=== PATIENT | female | born 1935 | race Caucasian/White ===

== ENCOUNTER 2017-08-14 03:03 | Emergency (ER) | payer MEDICARE ==
[~2017-08-14 03:03] MED LIST: ASPI-1197 PO; CHOL5POW MC; FURO40TA5 PO; GEMF600T3 PO; HYDR12.530 PO; LEVO500T2 PO; PROP20TA7 PO; WARF2.5T85 PO
[2017-08-14 03:39] LABS: BASOPHILS % (AUTO) 0.3 % (0.0-5.0); HEMATOCRIT 37.3 % (36-48); LYMPHOCYTES % (AUTO) 12.5 % (21.0-51.0); MEAN CORPUSCULAR HGB CONC 34.4 g/dL (32.0-36.0); MEAN CORPUSCULAR VOLUME 90.2 fL (79-99); NEUTROPHILS % (AUTO) 80.2 % (40.0-77.0); PLATELET COUNT (AUTO) 298 K/uL (130-400); RED BLOOD CELL COUNT(AUTO) 4.14 MIL/uL (4.00-5.50); WHITE BLOOD COUNT (AUTO) 10.7 K/uL (4.8-10.8)
[2017-08-14 03:48] LABS: CREATININE 1.4 mg/dL (0.5-1.5); POTASSIUM 3.4 mmol/L (3.5-5.1)
[2017-08-14 03:49] LABS: INR 2.61 (0.85-1.15); PARTIAL THROMBOPLASTIN TIME 33.1 SEC (26.3-35.5); PROTHROMBIN TIME 26.9 SEC (9.6-11.6)
[2017-08-14 04:03] LABS: ALBUMIN 4.3 g/dL (3.5-5.0); BILIRUBIN,TOTAL 0.5 mg/dL (0.2-1.0); CREATINE KINASE MB 1.5 ng/mL (0.5-3.6); TOTAL PROTEIN, SERUM 9.2 g/dL (6.0-8.3)
[2017-08-14] MEDS ORDERED: IPRATROPIUM/ALBUTEROL SULFATE 3 ML SOLUTION IH ONE (04:53)
[2017-08-14 05:02] LABS: APPEARANCE,URINE Clear (CLEAR); BILIRUBIN,URINE Negative (NEGATIVE); COLOR,URINE Yellow (YELLOW); GLUCOSE, URINE (UA) Negative (NEGATIVE); KETONES,URINE Negative (NEGATIVE); LEUKOCYTE ESTERASE ,URINE Trace (NEGATIVE); NITRATE,URINE Negative (NEGATIVE); OCCULT BLOOD,URINE Negative (NEGATIVE); PROTEIN,URINE Negative (NEGATIVE); UROBILINOGEN,URINE 0.2 mg/dL (0.2-1.0)
[2017-08-14 05:32] LABS: BACTERIA,URINE Rare /HPF (None Seen); RBC,URINE None Seen /HPF (0-1); SQUAMOUS EPITHELIAL CELL,UR 0-2 /HPF (0-2); WBC,URINE 0-1 /HPF (0-1)
[2017-08-14] MEDS ORDERED: METHYLPREDNISOLONE SOD SUCC 125MG/2ML VIAL ONE (06:36)
[2017-08-14] MEDS ORDERED: ALBUTEROL SULFATE 0.083% 2.5 MG/3 ML INH IH ONE (06:54)
== END 2017-08-14 07:50 | disposition home or self-care (01) ==
LOC: EDH 03:03
DX: J20.9 Acute bronchitis, unspecified (principal); I48.91 Unspecified atrial fibrillation; I48.92 Unspecified atrial flutter; I50.9 Heart failure, unspecified; Z88.0 Allergy status to penicillin; Z88.8 Allergy status to other drugs, medicaments and biological substances; Z79.899 Other long term (current) drug therapy; Z98.890 Other specified postprocedural states
CPT/HCPCS: 36415; 71045; 80053; 81001; 82550; 82553; 83880; 84484; 85025; 85610; 85730; 87804 ×2; 93005; 94640 ×2; 96374; 99285; J2930

== ENCOUNTER 2018-06-10 17:39 | Inpatient (IN) | payer MEDICARE ==
[~2018-06-10] VITALS: Ht 157.5 cm; Wt 66.0 kg
[~2018-06-10 17:39] MED LIST changes: -GEMF600T3 PO; +GEMF600T5 PO
[2018-06-10] MEDS ORDERED: ACETAMINOPHEN 325 MG TAB ONE (18:24)
[2018-06-10 18:37] LABS: EOSINOPHILS % (AUTO) 0.3 % (0.0-8.0); HEMATOCRIT 37.4 % (36-48); LYMPHOCYTES % (AUTO) 30.2 % (21.0-51.0); MEAN CORPUSCULAR HEMOGLOBIN 31.4 pg (27.0-33.0); MEAN CORPUSCULAR HGB CONC 34.6 g/dL (32.0-36.0); MEAN CORPUSCULAR VOLUME 90.8 fL (79-99); MONOCYTES % (AUTO) 16.6 % (3.0-13.0); NEUTROPHILS % (AUTO) 51.9 % (40.0-77.0); NUCLEATED RED BLOOD CELLS 0.1 % (0.0-0.19); PLATELET COUNT (AUTO) 265 K/uL (130-400); RED BLOOD CELL COUNT(AUTO) 4.12 MIL/uL (4.00-5.50); RED CELL DISTRIBUTION WIDTH 14.1 % (11.0-15.5); WHITE BLOOD COUNT (AUTO) 5.2 K/uL (4.8-10.8)
[2018-06-10 18:56] LABS: CREATININE 1.4 mg/dL (0.5-1.5); POTASSIUM 3.7 mmol/L (3.5-5.1)
[2018-06-10 19:06] LABS: ALBUMIN 3.6 g/dL (3.5-5.0); BILIRUBIN,TOTAL 0.8 mg/dL (0.2-1.0); TOTAL PROTEIN, SERUM 7.6 g/dL (6.0-8.3)
[2018-06-10] MEDS ORDERED: METHYLPREDNISOLONE SOD SUCC 125MG/2ML VIAL ONE (19:10)
[2018-06-10] MEDS ORDERED: LEVOFLOXACIN 750 MG/D5W 150 ML 150 ML ONE (19:10)
[2018-06-10] MEDS ORDERED: OSELTAMIVIR PHOSPHATE 75 MG CAP ONE (19:11)
[2018-06-10] MEDS ORDERED: ONDANSETRON HCL 4 MG/2 ML VIAL IV PRN (19:30)
[2018-06-10] MEDS: LEVOFLOXACIN 500 MG/D5W 100 ML 100 ML IV SCH (19:30)
[2018-06-10] MEDS ORDERED: SODIUM CHLORIDE 3% FOR INHALATION 4 ML/AMP VIAL.NEB IH ONE ×2 (19:46→21:46)
[2018-06-10] MEDS ORDERED: SODIUM CHLORIDE 0.9% 1000ML 1,000 ML IV ONE (19:53)
[2018-06-10] MEDS: OSELTAMIVIR PHOSPHATE 75 MG CAP PO SCH (21:00)
[2018-06-10 21:21] LABS: INR 1.57 (0.85-1.15); PARTIAL THROMBOPLASTIN TIME 33.7 SEC (26.3-35.5); PROTHROMBIN TIME 16.3 SEC (9.6-11.6)
[2018-06-10 21:30] VITALS: BP 122/68
[2018-06-10] MEDS: IPRATROPIUM 0.5 MG/2.5 ML INH IH SCH (21:47)
[2018-06-10] MEDS ORDERED: WARFARIN SODIUM 2.5 MG TAB ONE (22:35)
[2018-06-11] VITALS: BP 110/62
[2018-06-11] MEDS: IPRATROPIUM 0.5 MG/2.5 ML INH IH SCH ×6 (02:32→22:19)
[2018-06-11 04:00] VITALS: BP 127/66
[2018-06-11 05:17] LABS: BASOPHILS % (AUTO) 0.5 % (0.0-5.0); HEMATOCRIT 35.6 % (36-48); LYMPHOCYTES % (AUTO) 28.1 % (21.0-51.0); MEAN CORPUSCULAR HEMOGLOBIN 30.3 pg (27.0-33.0); MEAN CORPUSCULAR VOLUME 89.3 fL (79-99); MONOCYTES % (AUTO) 2.5 % (3.0-13.0); NEUTROPHILS % (AUTO) 68.9 % (40.0-77.0); NUCLEATED RED BLOOD CELLS 0.1 % (0.0-0.19); PLATELET COUNT (AUTO) 216 K/uL (130-400); RED BLOOD CELL COUNT(AUTO) 3.98 MIL/uL (4.00-5.50); WHITE BLOOD COUNT (AUTO) 3.4 K/uL (4.8-10.8)
[2018-06-11 05:26] LABS: INR 1.62 (0.85-1.15); PARTIAL THROMBOPLASTIN TIME 33.4 SEC (26.3-35.5); PROTHROMBIN TIME 16.9 SEC (9.6-11.6)
[2018-06-11 05:30] LABS: B-TYPE NATRIURETIC PEPTIDE 259 pg/mL (0-100)
[2018-06-11 05:36] LABS: ALBUMIN 3.2 g/dL (3.5-5.0); BILIRUBIN,TOTAL 0.8 mg/dL (0.2-1.0); CREATININE 1.3 mg/dL (0.5-1.5); POTASSIUM 3.4 mmol/L (3.5-5.1); TOTAL PROTEIN, SERUM 6.9 g/dL (6.0-8.3)
[2018-06-11] MEDS: SODIUM CHLORIDE 0.9% 1000ML 1,000 ML IV SCH ×3 (06:19→19:58)
[2018-06-11] MEDS ORDERED: HYDR12.530 PO (06:45)
[2018-06-11] MEDS ORDERED: WARF1TAB83 PO (06:45)
[2018-06-11] MEDS ORDERED: CYAN250014 PO (06:45)
[2018-06-11] MEDS ORDERED: FAMO20TA8 PO (06:45)
[2018-06-11] MEDS ORDERED: WARF2.5T85 PO (06:45)
[2018-06-11] MEDS ORDERED: PROP60TA20 PO (06:45)
[2018-06-11] MEDS ORDERED: NITR0.4T50 SL (06:45)
[2018-06-11] MEDS ORDERED: ISOS30TA6 PO (06:45)
[2018-06-11 07:00] VITALS: BP 129/76
--- NOTE | 2018-06-11 07:30 | NUR ---
PATIENT UPDATE Admitted for influenza B, placed on contact isolation. Started on Levaquin and Tamiflu, on nebs tx, coughing to moderate amount of whitish phlegm, sent for gm stain and culture. Afebrile the whole shift, vital signs stable, no complaints of pain. Coumadin 1.25 mg given last night, pt took own supply from home. Gentle hydration with NS at 70 cc/hr. Gets up to the restroom with minimal assistance, on tele monitoring- chronic afib at a controlled rate.
[2018-06-11] MEDS ORDERED: ENOXAPARIN SODIUM 30 MG/0.3 ML SQ SCH (09:00)
[2018-06-11] MEDS: OSELTAMIVIR PHOSPHATE 75 MG CAP PO SCH ×2 (09:23→19:55)
[2018-06-11] MEDS: PANTOPRAZOLE SODIUM 40 MG TABLET.DR PO SCH (09:24)
[2018-06-11] MEDS ORDERED: FUROSEMIDE 40 MG TABLET PO PRN (10:30)
[2018-06-11] MEDS ORDERED: NITROGLYCERIN 0.4 MG SL TAB SL SCH (10:30)
[2018-06-11 11:00] VITALS: BP 136/82
[2018-06-11] MEDS: PROPRANOLOL HCL 20 MG TAB PO SCH (12:02)
[2018-06-11] MEDS: CYANOCOBALAMIN (VITAMIN B-12) 1,000 MCG TABLET PO SCH (12:03)
[2018-06-11] MEDS: HYDROCHLOROTHIAZIDE 25 MG TABLET PO SCH (12:03)
[2018-06-11] MEDS: FAMOTIDINE 20MG TAB 20 MG TAB PO SCH (12:03)
--- NOTE | 2018-06-11 15:36 | NUR ---
INITIAL: Met w pt this afternoon to discuss dcp. Pt states that [place] is [place] Per pt she is living in an w 4steps to enter. She mentions that she is independent w ambulation and ADLs. Pt has a nebulizer and rollator avail if needed. per pt she is able to drive where needed and states that a friend will be avail to assist w transportation home. Pt feels safe and comfortable to return home at md. Will continue to follow and wait for Md recommendations. Addendum: 06/11/18 at 1541 by SHILOH GARCIA CM Amended: Links added.
[2018-06-11 16:00] VITALS: BP 143/77
[2018-06-11] MEDS: CHOLESTYRAMINE PACKET 4 GM PACKET PO SCH (19:55)
[2018-06-11] MEDS: LEVOFLOXACIN 500 MG/D5W 100 ML 100 ML IV SCH (19:55)
[2018-06-11 20:00] VITALS: BP 140/74
[2018-06-11] MEDS ORDERED: IPRATROPIUM/ALBUTEROL SULFATE 3 ML SOLUTION IH ONE (20:46)
[2018-06-11] MEDS: IPRATROPIUM/ALBUTEROL SULFATE 3 ML SOLUTION IH SCH (22:00)
[2018-06-12] VITALS (9 sets, daily range): BP systolic 95–150; BP diastolic 57–82
[2018-06-12] MEDS: IPRATROPIUM/ALBUTEROL SULFATE 3 ML SOLUTION IH SCH ×4 (02:00→21:37)
[2018-06-12] MEDS: ACETAMINOPHEN 325 MG TAB PO PRN ×2 (02:08→08:27)
[2018-06-12] MEDS: IPRATROPIUM 0.5 MG/2.5 ML INH IH SCH ×3 (02:19→10:20)
--- NOTE | 2018-06-12 02:21 | NUR ---
COUGH/FEVER Pt c/o cough and chills,states she feels like she's choking.Vs 100.2 97 18 159/80.02 sat 98% on 02 2 lpm via nh.Notified V Adrian Vinson.New orders received.
[2018-06-12] MEDS: FUROSEMIDE 10 MG/ML 4ML VIAL IV SCH ×4 (02:35→20:07)
--- NOTE | 2018-06-12 02:41 | NUR ---
SOB Pt states she feels sob,02 sat 88% when she got up to the bathroom.Anxious,placed on 02 at 2 lpm via Nc,Wants to sit up on chair,Ivf stopped.Lasix given iv.Notified Sarath Campbell Np.
[2018-06-12] MEDS ORDERED: MORPHINE SULFATE 2 MG/ML 1ML SYG ONE (02:45)
--- NOTE | 2018-06-12 02:50 | NUR ---
Morphine mORPHINE given Iv for sob as per order.
--- NOTE | 2018-06-12 02:59 | NUR ---
MANASA nuñez Np at the bedside.
[2018-06-12] MEDS ORDERED: MORPHINE SULFATE 2 MG/ML 1ML SYG IV ONE (03:00)
[2018-06-12] MEDS ORDERED: VANCOMYCIN PROTOCOL PER PHARMACY IV SCH (03:00)
--- NOTE | 2018-06-12 03:01 | NUR ---
ekg,cxr ekg and chest x ray being done.
--- NOTE | 2018-06-12 03:15 | NUR ---
CONSULT VIDHI SANDOVAL elementary assistant teacher SAID to wait for labs before calling pulmo consult.She will let me know when.
[2018-06-12 03:18] LABS: ABG BASE EXCESS -0.8 mmol/L (-2.0-3.0); ABG HCO3 22.5 mmol/L (21.0-28.0); ABG OXYGEN SATURATION 96.4 % (95.0-99.0); ABG PCO2 33 mmHg (32-45)
[2018-06-12 03:24] LABS: BASOPHILS % (AUTO) 0.7 % (0.0-5.0); EOSINOPHILS % (AUTO) 0.1 % (0.0-8.0); HEMATOCRIT 39.4 % (36-48); LYMPHOCYTES % (AUTO) 15.4 % (21.0-51.0); MEAN CORPUSCULAR HEMOGLOBIN 30.4 pg (27.0-33.0); MEAN CORPUSCULAR HGB CONC 33.7 g/dL (32.0-36.0); MEAN CORPUSCULAR VOLUME 90.4 fL (79-99); MONOCYTES % (AUTO) 4.6 % (3.0-13.0); NEUTROPHILS % (AUTO) 79.2 % (40.0-77.0); PLATELET COUNT (AUTO) 289 K/uL (130-400); RED BLOOD CELL COUNT(AUTO) 4.36 MIL/uL (4.00-5.50); RED CELL DISTRIBUTION WIDTH 14.3 % (11.0-15.5); WHITE BLOOD COUNT (AUTO) 12.1 K/uL (4.8-10.8)
[2018-06-12 03:30] LABS: CREATININE 1.4 mg/dL (0.5-1.5); POTASSIUM 4.9 mmol/L (3.5-5.1)
--- NOTE | 2018-06-12 03:31 | NUR ---
LACTIC ACID Lactic acid called in to Sarath Campbell feedlot manager
[2018-06-12 03:34] LABS: ALBUMIN 3.6 g/dL (3.5-5.0); BILIRUBIN,TOTAL 0.8 mg/dL (0.2-1.0); MAGNESIUM 1.9 mg/dL (1.80-2.40); TOTAL PROTEIN, SERUM 7.7 g/dL (6.0-8.3)
--- NOTE | 2018-06-12 03:34 | NUR ---
FF-UP Pt more calm,denies pain or sob.
[2018-06-12 03:44] LABS: INR 1.4 (0.85-1.15); PARTIAL THROMBOPLASTIN TIME 30.9 SEC (26.3-35.5); PROTHROMBIN TIME 14.6 SEC (9.6-11.6)
[2018-06-12] MEDS ORDERED: FUROSEMIDE 10 MG/ML 4ML VIAL IV SCH (03:45)
[2018-06-12 04:23] LABS: CREATINE KINASE, TOTAL 130 U/L (21-232); MYOGLOBIN 148 ng/mL (10-92); TROPONIN I < 0.04 ng/mL (0.00-0.06)
[2018-06-12] MEDS ORDERED: IPRATROPIUM/ALBUTEROL SULFATE 3 ML SOLUTION IH PRN (06:00)
[2018-06-12] MEDS ORDERED: VANCOMYCIN 1.75 GM in SODIUM CHLORIDE 0.9% 250 ML IV SCH (06:30)
--- NOTE | 2018-06-12 07:30 | NUR ---
VANCO VANCOMYCIN not yet here,report given to Apolinar Castro.
[2018-06-12] MEDS: HYDROCHLOROTHIAZIDE 25 MG TABLET PO SCH (08:24)
[2018-06-12] MEDS: OSELTAMIVIR PHOSPHATE 75 MG CAP PO SCH ×2 (08:25→20:06)
[2018-06-12] MEDS: ASPIRIN 81MG TAB.CHEW PO SCH (08:25)
[2018-06-12] MEDS: PANTOPRAZOLE SODIUM 40 MG TABLET.DR PO SCH (08:25)
[2018-06-12] MEDS: PROPRANOLOL HCL 20 MG TAB PO SCH (08:25)
[2018-06-12] MEDS: FAMOTIDINE 20MG TAB 20 MG TAB PO SCH (08:25)
[2018-06-12] MEDS: CYANOCOBALAMIN (VITAMIN B-12) 1,000 MCG TABLET PO SCH (08:25)
[2018-06-12] MEDS: ISOSORBIDE MONO 30MG TAB SR PO SCH (08:25)
[2018-06-12] MEDS: CHOLESTYRAMINE PACKET 4 GM PACKET PO SCH (09:00)
[2018-06-12] MEDS ORDERED: IPRATROPIUM 0.5 MG/2.5 ML INH IH PRN (10:30)
[2018-06-12] MEDS ORDERED: WARFARIN SODIUM 2.5 MG TAB PO SCH ×2 (10:30→16:00)
--- NOTE | 2018-06-12 14:04 | NUR ---
COUMADIN DIET EDUCATION: Printed materials provided on coumadin and vitamin K diet education. Pt reports being on coumadin for several years now, however unable to report how long. Pt with no nutrition questions. LBM 06/11. BMI 27.6, appropriate for age. Recommendations: Continue current diet therapy. Consult RD if additional nutrition concerns arise. Addendum: 06/12/18 at [address] RD Amended: Links added.
[2018-06-12] MEDS ORDERED: CHOLESTYRAMINE PACKET 4 GM PACKET PO SCH (16:42)
[2018-06-12] MEDS: LEVOFLOXACIN 500 MG/D5W 100 ML 100 ML IV SCH (20:07)
[2018-06-13] MEDS: IPRATROPIUM/ALBUTEROL SULFATE 3 ML SOLUTION IH SCH ×6 (01:28→21:37)
--- NOTE | 2018-06-13 03:45 | NUR ---
STATUS Pt resting well.Voiced no complaints of sob.Still has coughing spells,able to expectorate white thin phlegm.Valeria nebulizer treatments and antibiotic well.
[2018-06-13 03:51] VITALS: BP 127/55
[2018-06-13 05:47] LABS: BASOPHILS % (AUTO) 0.5 % (0.0-5.0); EOSINOPHILS % (AUTO) 0.1 % (0.0-8.0); HEMATOCRIT 37.2 % (36-48); LYMPHOCYTES % (AUTO) 27.8 % (21.0-51.0); MEAN CORPUSCULAR HGB CONC 33.5 g/dL (32.0-36.0); MEAN CORPUSCULAR VOLUME 89.4 fL (79-99); MONOCYTES % (AUTO) 8.5 % (3.0-13.0); NEUTROPHILS % (AUTO) 63.1 % (40.0-77.0); PLATELET COUNT (AUTO) 239 K/uL (130-400); RED BLOOD CELL COUNT(AUTO) 4.16 MIL/uL (4.00-5.50); RED CELL DISTRIBUTION WIDTH 14.4 % (11.0-15.5); WHITE BLOOD COUNT (AUTO) 6.2 K/uL (4.8-10.8)
[2018-06-13 05:58] LABS: INR 1.48 (0.85-1.15); PARTIAL THROMBOPLASTIN TIME 40.1 SEC (26.3-35.5); PROTHROMBIN TIME 15.4 SEC (9.6-11.6)
[2018-06-13 06:02] LABS: CREATININE 1.4 mg/dL (0.5-1.5); POTASSIUM 3.3 mmol/L (3.5-5.1)
--- NOTE | 2018-06-13 07:00 | NUR ---
MD Dr KWON came to see pt.He ordered Coumadin change.He said he will place order for K+ protocol and tessaln pearls.
[2018-06-13 08:24] VITALS: BP 124/61
[2018-06-13] MEDS: VANCOMYCIN 500MG+NS 100 ML IV SCH (08:53)
[2018-06-13] MEDS: OSELTAMIVIR PHOSPHATE 75 MG CAP PO SCH ×2 (08:54→21:53)
[2018-06-13] MEDS: FUROSEMIDE 10 MG/ML 4ML VIAL IV SCH ×2 (08:54→16:13)
[2018-06-13] MEDS: CYANOCOBALAMIN (VITAMIN B-12) 1,000 MCG TABLET PO SCH (08:54)
[2018-06-13] MEDS: PROPRANOLOL HCL 20 MG TAB PO SCH (08:54)
[2018-06-13] MEDS: ISOSORBIDE MONO 30MG TAB SR PO SCH (08:54)
[2018-06-13] MEDS: HYDROCHLOROTHIAZIDE 25 MG TABLET PO SCH (08:55)
[2018-06-13] MEDS: PANTOPRAZOLE SODIUM 40 MG TABLET.DR PO SCH (08:55)
[2018-06-13] MEDS: FAMOTIDINE 20MG TAB 20 MG TAB PO SCH (08:55)
[2018-06-13] MEDS: ASPIRIN 81MG TAB.CHEW PO SCH (08:55)
[2018-06-13 11:46] VITALS: BP 130/74
[2018-06-13] MEDS: METHYLPREDNISOLONE SOD SUCC 40MG/ML 1ML IVP SCH (12:44)
[2018-06-13] MEDS: BENZONATATE 100 MG CAPSULE PO PRN ×2 (12:49→21:52)
[2018-06-13] MEDS: ACETYLCYSTEINE 20% 200MG/ML 4ML VIAL IH SCH ×2 (15:04→21:37)
[2018-06-13 15:47] VITALS: BP_SYST 103; BP_SYST 130; BP_DIAS 58; BP_DIAS 72
[2018-06-13] MEDS: POTASSIUM CHLORIDE 10% ELIXIR 20 MEQ/15 ML UDCUP PO PRN ×2 (16:15→18:36)
[2018-06-13] MEDS: WARFARIN SODIUM 1 MG TAB PO SCH (16:16)
[2018-06-13] MEDS: LEVOFLOXACIN 500 MG/D5W 100 ML 100 ML IV SCH (18:36)
[2018-06-13 20:15] VITALS: BP 119/70
--- NOTE | 2018-06-13 21:52 | NUR ---
COUGH Pt continues with productive cough,medicated with Tessalon pearls.
[2018-06-13] MEDS: MONTELUKAST SODIUM 10 MG TAB PO SCH (21:53)
[2018-06-13 23:27] VITALS: BP 118/53
[2018-06-14] MEDS: IPRATROPIUM/ALBUTEROL SULFATE 3 ML SOLUTION IH SCH ×6 (01:34→21:25)
[2018-06-14 03:44] VITALS: BP 116/60
[2018-06-14] MEDS: GUAIFENESIN-CODEINE 5 ML SYRUP PO PRN ×2 (05:13→21:34)
[2018-06-14 05:48] LABS: INR 1.7 (0.85-1.15); PARTIAL THROMBOPLASTIN TIME 40.1 SEC (26.3-35.5); PROTHROMBIN TIME 17.7 SEC (9.6-11.6)
[2018-06-14 05:51] LABS: CREATININE 1.5 mg/dL (0.5-1.5); PHOSPHORUS 3.8 mg/dL (2.5-4.9); POTASSIUM 4.4 mmol/L (3.5-5.1)
[2018-06-14] MEDS: ACETYLCYSTEINE 20% 200MG/ML 4ML VIAL IH SCH ×3 (06:15→21:25)
[2018-06-14 07:30] VITALS: BP 127/77
[2018-06-14] MEDS: PROPRANOLOL HCL 20 MG TAB PO SCH (09:11)
[2018-06-14] MEDS: ASPIRIN 81MG TAB.CHEW PO SCH (09:11)
[2018-06-14] MEDS: CYANOCOBALAMIN (VITAMIN B-12) 1,000 MCG TABLET PO SCH (09:12)
[2018-06-14] MEDS: PANTOPRAZOLE SODIUM 40 MG TABLET.DR PO SCH (09:12)
[2018-06-14] MEDS: FUROSEMIDE 20 MG TABLET PO SCH (09:12)
[2018-06-14] MEDS: ISOSORBIDE MONO 30MG TAB SR PO SCH (09:12)
[2018-06-14] MEDS: OSELTAMIVIR PHOSPHATE 75 MG CAP PO SCH ×2 (09:12→21:34)
[2018-06-14] MEDS: FAMOTIDINE 20MG TAB 20 MG TAB PO SCH (09:12)
[2018-06-14] MEDS: VANCOMYCIN 500MG+NS 100 ML IV SCH (09:14)
[2018-06-14 11:00] VITALS: BP 130/75
[2018-06-14] MEDS: METHYLPREDNISOLONE SOD SUCC 40MG/ML 1ML IVP SCH (12:27)
[2018-06-14 16:00] VITALS: BP 122/78
[2018-06-14] MEDS ORDERED: WARFARIN SODIUM 1 MG TAB PO SCH (16:00)
[2018-06-14] MEDS: WARFARIN SODIUM 1 MG TAB PO SCH (16:33)
[2018-06-14] MEDS: LEVOFLOXACIN 500 MG/D5W 100 ML 100 ML IV SCH (18:40)
[2018-06-14 19:00] VITALS: BP 120/70
[2018-06-14] MEDS: MONTELUKAST SODIUM 10 MG TAB PO SCH (21:34)
[2018-06-14] MEDS: BENZONATATE 100 MG CAPSULE PO PRN (21:34)
--- NOTE | 2018-06-14 21:35 | NUR ---
MEDS PT IN TO DO BREATHING TREATMENT. STILL WITH COUGHING EPISODES. BUT PT CLAIMS SHE IS FEELING MUCH BETTER. BREATHING WITH EASE ON RA. DUE MEDS ADMINISTERED, TOLERATED WELL. KEPT RESTED IN BED WITH HOB ELEVATED. CALL LIGHT WITHIN REACH. WILL CONTINUE TO MONITOR.
[2018-06-15] VITALS: BP 142/85
[2018-06-15] MEDS: IPRATROPIUM/ALBUTEROL SULFATE 3 ML SOLUTION IH SCH ×6 (01:30→21:04)
--- NOTE | 2018-06-15 02:00 | NUR ---
ROUNDS PT RESTING WELL. NO DISTRESS NOTED. SLEPT AT INTERVALS. KEPT COMFORTABLE IN BED. WILL CONTINUE TO MONITOR.
[2018-06-15 04:00] VITALS: BP 130/66
[2018-06-15 04:51] LABS: HEMATOCRIT 37.5 % (36-48); MEAN CORPUSCULAR HEMOGLOBIN 31.1 pg (27.0-33.0); MEAN CORPUSCULAR HGB CONC 34.9 g/dL (32.0-36.0); MEAN CORPUSCULAR VOLUME 89.1 fL (79-99); PLATELET COUNT (AUTO) 272 K/uL (130-400); RED BLOOD CELL COUNT(AUTO) 4.21 MIL/uL (4.00-5.50); RED CELL DISTRIBUTION WIDTH 13.8 % (11.0-15.5)
[2018-06-15] MEDS: BENZONATATE 100 MG CAPSULE PO PRN ×2 (04:55→20:30)
[2018-06-15] MEDS: GUAIFENESIN-CODEINE 5 ML SYRUP PO PRN (04:55)
--- NOTE | 2018-06-15 04:55 | NUR ---
COUGH PT STILL HAVING COUGHING EPISODES. MEDICATED WITH TESSALON PEARLS AND GUAIFENESIN WITH CODEINE SYRUP. KEPT COMFORTABLE IN BED WITH HOB ELEVATED. FOR MORE CARE.
[2018-06-15 04:57] LABS: CREATININE 1.6 mg/dL (0.5-1.5); INR 2.33 (0.85-1.15); PARTIAL THROMBOPLASTIN TIME 36.6 SEC (26.3-35.5); POTASSIUM 3.9 mmol/L (3.5-5.1); PROTHROMBIN TIME 24.1 SEC (9.6-11.6)
[2018-06-15] MEDS: ACETYLCYSTEINE 20% 200MG/ML 4ML VIAL IH SCH ×3 (06:02→21:04)
--- NOTE | 2018-06-15 07:15 | NUR ---
MD REPORT GIVEN TO AM NURSE. DR MCGEE IN TO SEE PT. NEW ORDERS GIVEN, PLEASE REFER TO CPOE.
[2018-06-15 08:00] VITALS: BP 126/70
[2018-06-15] MEDS: PROPRANOLOL HCL 20 MG TAB PO SCH (09:59)
[2018-06-15] MEDS: FAMOTIDINE 20MG TAB 20 MG TAB PO SCH (09:59)
[2018-06-15] MEDS: ISOSORBIDE MONO 30MG TAB SR PO SCH (09:59)
[2018-06-15] MEDS: FUROSEMIDE 20 MG TABLET PO SCH (09:59)
[2018-06-15] MEDS: PANTOPRAZOLE SODIUM 40 MG TABLET.DR PO SCH (09:59)
[2018-06-15] MEDS: CYANOCOBALAMIN (VITAMIN B-12) 1,000 MCG TABLET PO SCH (09:59)
[2018-06-15] MEDS: OSELTAMIVIR PHOSPHATE 75 MG CAP PO SCH (09:59)
[2018-06-15] MEDS: ASPIRIN 81MG TAB.CHEW PO SCH (09:59)
[2018-06-15] MEDS ORDERED: COMPOUND IV REFRIGERATED 1 EACH IVSOLN MISC PRN (11:15)
[2018-06-15 12:00] VITALS: BP 119/69
[2018-06-15] MEDS: METHYLPREDNISOLONE SOD SUCC 40MG/ML 1ML IVP SCH (12:26)
[2018-06-15] MEDS: VANCOMYCIN 0.75 GM in SODIUM CHLORIDE 0.9% 250 ML IV SCH (12:26)
[2018-06-15 16:00] VITALS: BP 122/78
[2018-06-15] MEDS: WARFARIN SODIUM 2.5 MG TAB PO SCH (16:31)
[2018-06-15 20:00] VITALS: BP 124/68
[2018-06-15] MEDS: MONTELUKAST SODIUM 10 MG TAB PO SCH (20:30)
[2018-06-15] MEDS: LEVOFLOXACIN 500 MG/D5W 100 ML 100 ML IV SCH (20:30)
[2018-06-15] MEDS: TEMAZEPAM 7.5 MG CAPSULE PO PRN (20:30)
--- NOTE | 2018-06-15 20:30 | NUR ---
MEDS PT'S DUE MEDS ADMINISTERED, TOLERATED WELL. KEPT RESTED AND COMFORTABLE. CALL LIGHT WITHIN REACH. WILL CONTINUE TO MONITOR.
[2018-06-16] VITALS (7 sets, daily range): BP systolic 119–149; BP diastolic 61–91
[2018-06-16] MEDS: IPRATROPIUM/ALBUTEROL SULFATE 3 ML SOLUTION IH SCH ×6 (01:57→22:13)
--- NOTE | 2018-06-16 02:00 | NUR ---
ROUNDS PT RESTING WELL, FAIRLY ASLEEP WITH RESPIRATIONS EVEN AND UNLABORED. NO DISTRESS NOTED. KEPT UNDISTURBED FOR NOW. WILL MONITOR PT.
[2018-06-16 05:12] LABS: INR 3.33 (0.85-1.15); PROTHROMBIN TIME 34.2 SEC (9.6-11.6)
--- NOTE | 2018-06-16 06:25 | NUR ---
ROUNDS PT STILL FAIRLY ASLEEP. NO DISTRESS NOTED. KEPT RESTED AND COMFORTABLE. FOR MORE CARE.
[2018-06-16] MEDS: ACETYLCYSTEINE 20% 200MG/ML 4ML VIAL IH SCH ×3 (06:48→22:13)
[2018-06-16] MEDS: CYANOCOBALAMIN (VITAMIN B-12) 1,000 MCG TABLET PO SCH (09:35)
[2018-06-16] MEDS: FUROSEMIDE 20 MG TABLET PO SCH (09:35)
[2018-06-16] MEDS: PREDNISONE 20 MG TABLET PO SCH (09:35)
[2018-06-16] MEDS: PROPRANOLOL HCL 20 MG TAB PO SCH (09:35)
[2018-06-16] MEDS: PANTOPRAZOLE SODIUM 40 MG TABLET.DR PO SCH (09:36)
[2018-06-16] MEDS: ISOSORBIDE MONO 30MG TAB SR PO SCH (09:36)
[2018-06-16] MEDS: FAMOTIDINE 20MG TAB 20 MG TAB PO SCH (09:36)
[2018-06-16] MEDS: ASPIRIN 81MG TAB.CHEW PO SCH (09:36)
[2018-06-16] MEDS: VANCOMYCIN 0.75 GM in SODIUM CHLORIDE 0.9% 250 ML IV SCH (13:05)
[2018-06-16] MEDS: WARFARIN SODIUM 2.5 MG TAB PO SCH (16:16)
[2018-06-16] MEDS: LEVOFLOXACIN 500 MG/D5W 100 ML 100 ML IV SCH (19:55)
[2018-06-16] MEDS: MONTELUKAST SODIUM 10 MG TAB PO SCH (19:55)
[2018-06-16] MEDS: GUAIFENESIN-CODEINE 5 ML SYRUP PO PRN (23:47)
[2018-06-17] MEDS: IPRATROPIUM/ALBUTEROL SULFATE 3 ML SOLUTION IH SCH ×6 (02:18→21:05)
[2018-06-17] MEDS: TEMAZEPAM 7.5 MG CAPSULE PO PRN (02:44)
[2018-06-17 04:25] VITALS: BP 155/89
[2018-06-17 05:15] LABS: INR 4.94 (0.85-1.15); PROTHROMBIN TIME 50.3 SEC (9.6-11.6)
[2018-06-17] MEDS: ACETYLCYSTEINE 20% 200MG/ML 4ML VIAL IH SCH ×3 (06:09→21:05)
[2018-06-17 08:00] VITALS: BP 149/90
[2018-06-17] MEDS: FUROSEMIDE 20 MG TABLET PO SCH (08:21)
[2018-06-17] MEDS: CYANOCOBALAMIN (VITAMIN B-12) 1,000 MCG TABLET PO SCH (08:21)
[2018-06-17] MEDS: PANTOPRAZOLE SODIUM 40 MG TABLET.DR PO SCH (08:21)
[2018-06-17] MEDS: ASPIRIN 81MG TAB.CHEW PO SCH (08:21)
[2018-06-17] MEDS: PREDNISONE 20 MG TABLET PO SCH (08:21)
[2018-06-17] MEDS: PROPRANOLOL HCL 20 MG TAB PO SCH (08:21)
[2018-06-17] MEDS: FAMOTIDINE 20MG TAB 20 MG TAB PO SCH (08:22)
[2018-06-17] MEDS: GUAIFENESIN-CODEINE 5 ML SYRUP PO PRN (08:48)
[2018-06-17] MEDS: ISOSORBIDE MONO 30MG TAB SR PO SCH (11:28)
[2018-06-17] MEDS: VANCOMYCIN 0.75 GM in SODIUM CHLORIDE 0.9% 250 ML IV SCH (11:45)
[2018-06-17 11:54] VITALS: BP 133/72
--- NOTE | 2018-06-17 12:23 | NUR ---
CHELE valdivia spoke to pt regarding d/c planning. Explained md recommendations for LTAC. MARINA explained services provided. Pt in agreeement with plan. MARINA obtained consent and faxed referral. Notified Claudia with [facility] that plan is for d/c today. MARINA updated nursing. Addendum: 06/17/18 at 1234 by LETY KNAPP CM Amended: Links added.
--- NOTE | 2018-06-17 12:35 | NUR ---
TRANSPORTATION cm discussed transportation arrangements with pt. spouse at bedside. States he can transport pt. CM explained that EMS can be arranged if requested but cannot guarantee coverage. Pt states she feels safe to transport via private car. CM also discussed with nursing. Pt aware that transfer may happen today. Spouse to transport pt.
--- NOTE | 2018-06-17 14:17 | NUR ---
tele Patient is refusing to be placed back on cafeteria monitor. MD aware. Patient states she will be leaving to [facility] and won't require apparatus.
[2018-06-17] MEDS: WARFARIN SODIUM 2.5 MG TAB PO SCH (16:00)
[2018-06-17] MEDS ORDERED: WARFARIN SODIUM 2.5 MG TAB PO SCH (16:00)
--- NOTE | 2018-06-17 16:59 | NUR ---
[facility] GRAY spoke to Claudia with [facility]. States pt has been accepted and per policy pt is to be sent via EMS. pt and spouse aware of arrangements. nursing aware of acceptance. Addendum: 06/17/18 at 1700 by LETY KNAPP CM Amended: Links added.
--- NOTE | 2018-06-17 18:37 | NUR ---
DISCHARGE PATIENT GIVEN DISCHARGE INSTRUCTIONS AND EDUCATION, MEDICATIONS RECONCILED PER MD. PATIENT BEING DISCHARGED TO [facility]. PATIENT VERBALIZED UNDERSTANDING OF ALL EDUCATION GIVEN VIA TEACH BACK. NO QUESTIONS OR CONCERNS VOICED AT THIS TIME. OIL FILTERS INSPECTOR DISCONTINUED, MONITOR AWARE. REPORT GIVEN TO JING CALIXTO AT [facility]. ALL QUESTIONS ANSWERED. EMS ACTIVATED. PENDING EMS TRANSFER TO [facility]. PATIENT AND SPOUSE AT BEDSIDE AWARE. CALL LIGHT WITHIN REACH. WILL CONTINUE TO BE OBSERVED. Addendum: 06/17/18 at 1843 by REED HOGAN RN RN Amended: Links added.
[2018-06-17] MEDS: LEVOFLOXACIN 500 MG/D5W 100 ML 100 ML IV SCH (19:30)
--- NOTE | 2018-06-17 20:41 | NUR ---
PIV DCD PIV TO RIGHT FA G18 DCD ASEPTICALLY ,CATH COMPLETELY OUT ,GOOD HEMOSTASIS Addendum: 06/17/18 at 2041 by AMY HENRIQUEZ RN RN Amended: Links added.
[2018-06-17] MEDS: MONTELUKAST SODIUM 10 MG TAB PO SCH (21:00)
[2018-06-17 21:18] VITALS: BP 127/64
--- NOTE | 2018-06-17 21:19 | NUR ---
PT DC PROCEEDING ENDORSED CARE TO EMS PERSONNEL X2 , FOR [facility] TRANSFER , PT STABLE ,DENIES ACUTE PAIN OR DISCOMFORT , AFEBRILE ,RESP REG EASY , STABLE V/S AND RECORDED Addendum: 06/17/18 at 1 by AMY HENRIQUEZ RN RN Amended: Links added.
== END 2018-06-17 21:35 | DRG 871 ==
LOC: EDH 17:39 → EDHIP 19:28 → 3DH 20:42
PROVIDERS: ADMIT Hospitalist; ATTEND Hospitalist
DX: A41.9 Sepsis, unspecified organism (principal); J10.00 Influenza due to other identified influenza virus with unspecified type of pneumonia; J96.01 Acute respiratory failure with hypoxia; D68.59 Other primary thrombophilia; I13.0 Hypertensive heart and chronic kidney disease with heart failure and stage 1 through stage 4 chronic kidney disease, or unspecified chronic kidney disease; I48.2 Chronic atrial fibrillation; I25.10 Atherosclerotic heart disease of native coronary artery without angina pectoris; N18.3 Chronic kidney disease, stage 3 (moderate); B96.89 Other specified bacterial agents as the cause of diseases classified elsewhere; E78.5 Hyperlipidemia, unspecified; I50.9 Heart failure, unspecified; G47.00 Insomnia, unspecified; R53.81 Other malaise; I25.2 Old myocardial infarction; Z79.01 Long term (current) use of anticoagulants; Z90.710 Acquired absence of both cervix and uterus; Z90.12 Acquired absence of left breast and nipple; Z86.73 Personal history of transient ischemic attack (TIA), and cerebral infarction without residual deficits; Z85.3 Personal history of malignant neoplasm of breast; Z80.8 Family history of malignant neoplasm of other organs or systems; Z80.6 Family history of leukemia; Z80.3 Family history of malignant neoplasm of breast; Z88.0 Allergy status to penicillin; Z88.7 Allergy status to serum and vaccine; Z88.8 Allergy status to other drugs, medicaments and biological substances
CPT/HCPCS: 36415; 36600; 71045; 71275; 80048; 80053; 80202; 80339; 82435; 82550; 82803; 82947; 83605; 83735; 83874; 83880; 84100; 84132; 84295; 84484; 85018; 85025; 85027; 85378; 85610; 85651; 85730; 86140; 87040; 87071; 87077; 87186; 87205; 87486; 87581; 87633; 87798; 87804; 93005; 93306; 93970; 94640; 94664; 94667; 94668; 99291; G0378; J1940; J1956; J2920; J2930; J3370; J7030; J7608

== ENCOUNTER → 2020-06-04 | Outpatient (CLI) | payer MEDICARE ==
[~2020-06-04] MED LIST changes: +ACET1TAB12 PO; -CHOL5POW MC; +COLC0.6T73 PO; +CYAN250014 PO; +FAMO20TA8 PO; -GEMF600T5 PO; +ISOS30TA6 PO; -LEVO500T2 PO; +NITR0.4T50 SL; +POTA-79 PO; -PROP20TA7 PO; +PROP60TA20 PO; +WARF1TAB83 PO
== END | disposition home or self-care (01) ==
LOC: SHCH 10:54
PROVIDERS: ATTEND Internal Medicine Cardiovascular Disease
DX: I08.3 Combined rheumatic disorders of mitral, aortic and tricuspid valves (principal)
CPT/HCPCS: 93306; 93356

== ENCOUNTER → 2020-07-24 | Outpatient (CLI) | payer MEDICARE ==
[~2020-07-24] MED LIST changes: -ISOS30TA6 PO; +ISOS30TA92 PO
== END | disposition home or self-care (01) ==
LOC: OIH 13:59
PROVIDERS: ATTEND Internal Medicine
DX: M19.072 Primary osteoarthritis, left ankle and foot (principal); M77.32 Calcaneal spur, left foot; M19.071 Primary osteoarthritis, right ankle and foot
CPT/HCPCS: 73630